=== PATIENT | female | born 1985 | race Caucasian/White ===

== ENCOUNTER → 2018-06-25 | Outpatient (CLI) | payer OTHER | LOC: M LRY 14:35 | DX: R09.89 Other specified symptoms and signs involving the circulatory and respiratory systems (principal) | CPT/HCPCS: 71046 ==

== ENCOUNTER → 2018-06-25 | Outpatient (REF) | payer OTHER | LOC: M SFHCLERA 14:30 | DX: R50.9 Fever, unspecified (principal) ==

== ENCOUNTER → 2023-01-02 | Outpatient (CLI) | payer OTHER | LOC: M PLALAB 12:12 | PROVIDERS: ATTEND Nurse Practitioner Family | DX: Z12.4 Encounter for screening for malignant neoplasm of cervix (principal) ==

== ENCOUNTER → 2023-04-04 | Outpatient (REF) | payer OTHER | LOC: M SFHCWAGY 13:10 | PROVIDERS: ATTEND Nurse Practitioner Family | DX: Z12.4 Encounter for screening for malignant neoplasm of cervix (principal) ==